=== PATIENT | female | born 1985 | race Caucasian/White ===

== ENCOUNTER 2019-07-25 05:00 | Day surgery (SDC) | payer BC, OTHER ==
[2019-07-24 15:15] LABS: BASOPHILS 0.4 % (0-2); EOSINOPHILS 1.2 % (0-7); HEMATOCRIT 42.3 % (36.0-48.0); HEMOGLOBIN 14.8 g/dL (12-16); LYMPHOCYTES 14.3 % (15-50); MCV 91.6 fL (80.0-100.0); MEAN PLATELET VOLUME 10.1 fL (7.4-10.4); MONOCYTES 7.2 % (2-11); NEUTROPHILS 75.9 % (40-80); PLATELET COUNT 320 10x3/uL (130-400); RBC 4.62 10x6/uL (4.00-5.40); RDW 13.3 % (11.5-14.5); WBC 11.3 10x3/uL (4.8-10.8)
[2019-07-24 15:48] LABS: CALC OSMOLALITY 275 mosm/kg (275-300); CALCIUM 9.2 mg/dL (8.5-10.1); CARBON DIOXIDE 26.8 mmol/L (21.0-32.0); CHLORIDE - SERUM 99 mmol/L (98-107); CREATININE - SERUM 0.8 mg/dL (0.6-1.3); POTASSIUM - SERUM 4.2 mmol/L (3.5-5.1); SODIUM 137 mmol/L (136-145); UREA NITROGEN 10 mg/dL (7-18); eGFR NON AFRICAN AMERICAN 87 mL/min (90-120)
[2019-07-24 15:51] LABS: GLUCOSE 150 mg/dL (74-106)
[~2019-07-25] VITALS: Ht 160 cm; Wt 141.5 kg
[~2019-07-25 05:00] MED LIST: ADDERALL 20 MG20 M1 PO; LISINOPRIL-HCT1 EAC4 PO; PROTONIX40 MG PO
[2019-07-25] MEDS ORDERED: ATIVAN0.5 MG PO (06:17)
[2019-07-25 06:21] VITALS: BP 146/87; Ht 160 cm; Wt 141.5 kg
[2019-07-25 06:32] LABS: HCG URINE NEGATIVE (NEGATIVE)
[2019-07-25] MEDS ORDERED: ULTRAM50 MG PO (08:24)
--- NOTE | 2019-07-25 10:38 | NUR ---
PATIENT AMBULATES TO BATHROOM AND VOIDS MODERATE AMOUNT URINE IN TOILET. AMBULATES WITHOUT DIZZINESS OR UNSTEADINESS. DISCHARGE INSTRUCTIONS REVIEWED WITH PATIENT, RICHIE RAMOS'Gonzalo WITH TIP INTACT
--- NOTE | 2019-07-26 11:37 | OP ---
PATIENT NAME: BRENDA ELAM MEDICAL RECORD: [id number] :85 LOCATION:D.OPS ADMISSION DATE: SURGEON: JOE BEAVERS MD DATE OF OPERATION: 07/25/2019 PREOPERATIVE DIAGNOSES: 1. Gallstones. 2. Lipoma of the abdominal wall. 3. Hypertension. 4. Asthma. 5. Morbid obesity with a BMI of 55. POSTOPERATIVE DIAGNOSES: 1. Gallstones. 2. Lipoma of the abdominal wall. 3. Hypertension. 4. Asthma. 5. Morbid obesity with a BMI of 55. PROCEDURES: 1. Laparoscopic cholecystectomy. 2. Excision of 3 cm left lower quadrant abdominal lipoma. SURGEON: Joe Beavers MD REPORT OF PROCEDURE: The patient's abdomen was prepped and draped in sterile fashion. A skin incision was made on the superior aspect of the umbilicus, 0 Vicryls were placed in the fascia bilaterally and the fascia was incised with 15-blade. I then bluntly entered the peritoneal cavity and placed a 12-mm Lorena port. Under direct visualization, a 5 mm trocar was placed in the epigastrium and 2 more 5-mm trocars were placed in the right subcostal region. The gallbladder was grasped and elevated. There were no signs of any inflammatory changes, but there was a large stone present in the neck. The cystic artery and cystic duct were dissected free and these were clipped proximally and distally and ligated in standard fashion. The gallbladder was then taken off the liver bed using electrocautery and placed into the right upper quadrant. Any bleeding from the liver bed was treated with electrocautery. At this point, the ports and insufflation were then removed and the gallbladder was taken out through the umbilicus. The umbilical fascia was closed with interrupted 0 Vicryls times 3. We then made a transverse incision overlying the mass in the left lower quadrant of the abdomen. We immediately encountered a firm lipoma. This lipoma was approximately 3 cm in greatest diameter. It was completely excised. We then irrigated out the wounds with normal saline and infused them with a total of 10 mL of 0.25% Marcaine with epinephrine. The skin incisions were all closed with subcutaneous 5-0 Monocryl and dressed appropriately. COMPLICATIONS: None. CONDITION: Stable. ANESTHESIA: General endotracheal and local. BLOOD LOSS: Minimal. OPERATIVE REPORT [id number] BRENDA ELAM TRANSINT:[id number] Voice Confirmation ID: [id number] DOCUMENT ID: [id number] JOE BEAVERS MD at 1137 CC: ALICE CRESPO and ZEYAD CHANEL MD [id number] DICTATION DATE: 07/25/19 0827 [employer]: 07/25/19 1137 [facility] 07/25/19 [place] [id number]
== END 2019-07-25 10:50 | disposition home or self-care (01) ==
LOC: D.OPS 05:00
PROVIDERS: ATTEND Surgery
DX: K80.80 Other cholelithiasis without obstruction (principal); D17.1 Benign lipomatous neoplasm of skin and subcutaneous tissue of trunk; E66.01 Morbid (severe) obesity due to excess calories; I10 Essential (primary) hypertension; J45.909 Unspecified asthma, uncomplicated